=== PATIENT | female | born 1970 | race Caucasian/White ===

== ENCOUNTER 2017-09-26 17:46 | Emergency (ER) | payer OTHER ==
[~2017-09-26] VITALS: Ht 152.4 cm; Wt 57.7 kg
[2017-09-26 18:03] VITALS: BP 128/72; Ht 152.4 cm; Wt 57.7 kg
== END 2017-09-26 19:28 | disposition home or self-care (01) ==
LOC: ED 17:46
DX: T63.441A Toxic effect of venom of bees, accidental (unintentional), initial encounter (principal); Y92.89 Other specified places as the place of occurrence of the external cause
CPT/HCPCS: J0171; J1200; J7512

== ENCOUNTER 2017-10-06 11:52 | Emergency (ER) | payer OTHER ==
[~2017-10-06] VITALS: Ht 160 cm; Wt 57.6 kg
[2017-10-06 12:07] VITALS: Ht 160 cm; Wt 57.6 kg
[2017-10-06 14:47] VITALS: BP 111/73
== END 2017-10-06 14:47 | disposition home or self-care (01) ==
LOC: ED 11:52
DX: T78.3XXD Angioneurotic edema, subsequent encounter (principal); T63.441D Toxic effect of venom of bees, accidental (unintentional), subsequent encounter; Y92.89 Other specified places as the place of occurrence of the external cause

== ENCOUNTER 2018-11-23 07:46 | Emergency (ER) | payer OTHER ==
[~2018-11-23] VITALS: Ht 152.4 cm; Wt 59.0 kg
[2018-11-23 07:51] VITALS: Ht 152.4 cm; Wt 59.0 kg
[2018-11-23 09:13] LABS: BASOPHIL % 0.1 % (0-2); PLATELET COUNT 324 x10^3mcL (130-400); RED CELL DISTRIBUTION WIDTH 13.1 % (11.5-14.5)
[2018-11-23 09:30] LABS: CALCIUM 8.7 mg/dL (8.5-10.1); CARBON DIOXIDE 26.6 mmol/L (21-32); CHLORIDE SERUM 104 mmol/L (98-107); CREATININE SERUM 0.8 mg/dL (0.6-1.0); GFR1 > 60 mL/min; GLUCOSE SERUM 94 mg/dL (74-106); SODIUM SERUM 140 mmol/L (136-145)
[2018-11-23 09:35] LABS: ALBUMIN 3.7 g/dL (3.4-5.0); ALKALINE PHOSPHATASE 89 U/L (46-116); ALT/SGPT 22 U/L (14-59); AST/SGOT 14 U/L (15-37); BILIRUBIN TOTAL 0.4 mg/dL (0.20-1.00); CHOLESTEROL 160 mg/dL (<200); HDL CHOLESTEROL 46 mg/dL (40-60)
[2018-11-23 12:24] VITALS: BP 112/71
== END 2018-11-23 12:24 | disposition home or self-care (01) ==
LOC: ED 07:46
PROVIDERS: Emergency Medicine
DX: R42 Dizziness and giddiness (principal); Z91.030 Bee allergy status
CPT/HCPCS: 82962; J2405; J7030; J8597; Q0092